=== PATIENT | male | born 1995 | race Caucasian/White ===

== ENCOUNTER 2017-02-18 18:39 | Emergency (ER) | payer SELFPAY ==
[2017-02-18] MEDS ORDERED: Sodium Chloride 0.9% 1,000 ML PRIMARY IV ONE (18:53)
[2017-02-18] MEDS ORDERED: ALBUTEROL SULFATE 2.5 MG/3 ML NEB ONE (18:53)
[2017-02-18] MEDS ORDERED: NORMAL SALINE 10 ML SYRINGE FLUSH IVP PRN (18:53)
[2017-02-18 19:17] LABS: BASOPHILS # (AUTO) 0.03 10*3/UL; BASOPHILS % (AUTO) 0.2 % (0-1); EOSINOPHILS # (AUTO) 0.18 10*3/UL; EOSINOPHILS % (AUTO) 0.9 % (0-8); HEMATOCRIT 48.3 % (42.0-52.0); HEMOGLOBIN 17.4 g/dL (14.0-18.0); LYMPHOCYTES # (AUTO) 0.56 10*3/uL; MEAN CORPUSCULAR HEMOGLOBIN 29.5 PG (27-31); MEAN PLATELET VOLUME 9.4 FL (7.4-12.2); MONOCYTES # (AUTO) 0.61 10*3/UL (0.3-0.8); MONOCYTES % (AUTO) 3.1 % (5-15); NEUTROPHILS # (AUTO) 18.09 10*3/UL; NEUTROPHILS % (AUTO) 92.6 % (50-80); RED BLOOD COUNT 5.89 10^6/uL (4.70-6.10)
[2017-02-18 19:25] LABS: BUN/CREATININE RATIO 12.66 (6-20); CALCIUM 9.1 mg/dL (8.7-10.7); SERUM ALBUMIN 4.5 g/dL (3.5-4.8)
[2017-02-18 19:33] LABS: VENOUS PH 7.5 (7.32-7.42)
[2017-02-18 19:33] LABS: PLATELET MORPHOLOGY COMMENT NORMAL MORPHOLOGY (NORM); RBC MORPHOLOGY COMMENT NORMAL MORPHOLOGY (NORM); WBC MORPHOLOGY COMMENT NORMAL MORPHOLOGY (NORM)
[2017-02-18] MEDS ORDERED: ACETAMINOPHEN 500 MG TABLET PO ONE (19:45)
[2017-02-18 19:47] VITALS: RESP 48; TEMP 97.8
[2017-02-18 20:36] LABS: ABG PCO2 29 MMHG (34-38); ABG PH 7.41 (7.35-7.45); ABG PO2 89 MMHG (65-75); COLLECTION SITE R Brachial
[2017-02-18 20:37] LABS: ABG BASE EXCESS -6 MMOL/L (-2-2); ABG OXYGEN SATURATION 97 % (90-100); ALLEN TEST yes
--- NOTE | 2017-02-18 20:53 | DI ---
HISTORY: Dyspnea, cough. COMPARISON: 09/16/2014. FINDINGS: The heart is within normal limits. The lung tadeo are essentially clear. There has been on private branch exchange service adviser the interval. IMPRESSION: 1. No acute cardiopulmonary pathology identified.
--- NOTE | 2017-02-18 21:29 | DI ---
HISTORY: Cough, dyspnea. COMPARISON: None available. TECHNIQUE: Following the administration of intravenous contrast (using the pulmonary artery angiogra m protocol) axial CT images were obtained with coronoal and sagittal reformats. FINDINGS: Patchy ground glass opacities are noted in the lungs possibly infectious or inflammatory i n nature. There is mild soft tissue prominence in the hilar regions possibly representing lymphadenopathy, also possibly infectious/inflammatory in nature, however underlying neoplasm hard to exclude. The heart is normal in size. There are no filling defects in the main, hilar, segmental, and subsegmental pulmonary arteries. The visualized portions of the tracheobronchial tree are normal. IMPRESSION: 1. No evidence of pulmonary emboli. 2. Patchy ground glass opacities are noted in the lungs possibly infectious or inflammatory in nature ; follow up is recommended. 3. There is mild soft tissue prominence in the hilar regions possibly representing lymphadenopathy, a lso possibly infectious/inflammatory in nature, however underlying neoplasm hard to exclude. Clinical correlation and follow up are recommended.
[2017-02-18] MEDS ORDERED: AZITHROMYCIN 250 MG TABLET PO ONE (21:53)
--- NOTE | 2017-02-18 22:09 | PDOC ---
Dyspnea HPI - General Chief Complaint: Dyspnea Stated Complaint: Shortness of breath Date Seen by Provider: 02/18/17 Time Seen by Provider: 18:45 Source: POSITIVE: Patient Exam Limitations: POSITIVE: No limitations Treatment Prior to Arrival: REPORTS: None Nurse's Notes Reviewed & Considered: Yes - History of Present Illness Initial Comments: The patient is a 21-year-old male. He states that for the past one and a half days he has felt short of breath and has had some pain over the left anterior thorax with breathing and direct palpation. He states he's had some myalgia, especially in his legs and back. He's also had a cough during this time, minimally productive. Patient is had surgical repair of bilateral club feet. No hemoptysis. Body Location Affected: REPORTS: Chest Timing: REPORTS: Gradual, Getting Worse Duration: >24 hours (Approximately 36 hours) Severity: Moderate Quality: REPORTS: "Pain" (Pleuritic chest pain left anterior thorax) Initiating Event: DENIES: Upper Respiratory Illness, Out of Medications, Sports , Exercise, Aspiration, Choking, Allergy, Exposure - Smoke, Exposure - Mold, Exposure - Other Allergen Context: DENIES: Sleep, Rest, Emotional Upset, Activity, Exertion, Other Exacerbated By: REPORTS: Coughing Associated Symptoms: REPORTS: Fever (Subjectively), Chest Pain, Chest Discomfort , Left Chest, Painful Breathing Similar Symptoms Previously: No Recently seen/treated/hospitalized: No Any Prior Injuries Related to Current Complaint?: No - Patient Home Medications Home Medications: Home Medications Azithromycin [Zithromax Tri-Chucho] 500 mg PO DAILY #4 tab 02/18/17 - Patient Allergies Allergies/Adverse Reactions: Allergies Allergy/AdvReac Type Severity Reaction Status Date / Time No Known Allergies Allergy Verified 02/18/17 18:41 Past Medical History - heen HEENT History: Denies History Cardiovascular History: Denies History Additional Cardiovasular History: BRADYCARDIC Respiratory History: Denies History Gastrointestinal History: Denies History Genitourinary History: Denies History Endocrine History: Denies History Musculoskeletal History: Other (please comment) Prosthesis or Implant: No Additional Musculoskeletal History: BORN W/ CLUB FEET, HAVE BEEN REPAIRED Neurological History: Denies History Blood Disorders: Denies History Psychiatric History: Denies History History of Sexually Transmitted Diseases: No Male Reproductive History: Denies History Cancer History: Denies History In Past Year Been Physically Harmed or Verbally Threatened: No History of MDRO: No History of Other Communicable Diseases: No Tobacco Use: Never Smoker Alcohol Use: None Substance Use Type: None Previous Surgical History: Yes Type / Date of Surgery: repair of bilateral club feet Anesthesia Reactions: No Malignant Hyperthermia: No Significant Family History: Diabetes Past Medical History Reviewed: Reviewed - No Changes ROS - Limitations ROS Limitations: No Limitations Constitution: REPORTS: Fever (Subjectively) Cardiovascular: REPORTS: Denies Cardiac Symptoms Respiratory: REPORTS: Cough Non Productive, Hurts To Breathe, Shortness Of Breath Neurological: REPORTS: Denies Neuro Symptoms Gastrointestinal: REPORTS: Denies GI Symptoms Endocrine: REPORTS: Denies Symptoms Musculoskeletal: REPORTS: Denies MS Symptoms Genitourinary: REPORTS: Denies Symptoms Eyes: REPORTS: Denies Symptoms ENT: REPORTS: Denies Symptoms Skin: REPORTS: Denies Skin Symptoms Lympathic: REPORTS: Denies Lympathic Symptoms Immunologic: POSITIVE: Denies Symptoms Psychiatric: POSITIVE: Denies Psych Symptoms Dyspnea Physical Exam - General Appearance General Appearance: REPORTS: Alert, Cooperative, No Acute Distress, No Evidence of Trauma - HEENT HEENT: POSITIVE: Head Inspection Nml, Eyes Inspection Nml, Ears Inspection Nml, Nose Inspection Nml, Oral/Dental Inspect. Nml, Pharynx Inspect. Nml, PERRL, EOMI - Neck Neck: REPORTS: Normal Inspection, No Carotid Bruit - Respiratory Respiratory: REPORTS: No Respiratory Distress, Speaks Full Sentences, Rhonchi, See Diagram. DENIES: Breath Sounds Normal (Mild scattered rhonchi), No Pleuritic Chest Pain, No Pain on Inspiration, Respiratory Distress, Fatigue, Wheezes, Rales - Cardiovascular Cardiovascular: REPORTS: Regular Rate and Rhythm, Heart Sounds Normal, Equal Pulses, Strong Pulses, No Murmur, No Gallop, No Friction Rub, No JVD Peripheral Pulses: Radial (R): 2+, Radial (L): 2+ - Abdomen Abdomen: Soft: (All Quadrants), Normal Bowel Sounds: (All Quadrants), Denies Tenderness: (All Quadrants), No Splenomegaly: (All Quadrants), No Hepatomegaly: (All Quadrants), No Guarding: (All Quadrants), No Rebound: (All Quadrants), No Palpable Pulse: (All Quadrants), No Palpabale Mass: (All Quadrants), No Distention: (All Quadrants), No Rigidity: (All Quadrants) - Skin Skin: REPORTS: Intact, Normal For Race, Warm, Dry, No Rash - Extremities Extremity: Non-Tender: (All Extremities), Normal ROM: (All Extremities), Normal Inspection: (All Extremities) - Neurological / Psychological Neurological: POSITIVE: Oriented X3, fisher weir Normal As Tested, Motor Normal, Sensation Normal, 5, 6 Images - Body Body: 1 - Area of chest discomfort with inspiration Dyspnea Progress - Results Reviewed by me Xrays/CTs/US Reviewed by me: Yes Discussed with Radiologist: Yes Radiology Findings: Chest x-ray normal. CT chest shows patchy groundglass opacities compatible with an infectious/inflammatory process. Lab Results Reviewed: Yes Lab Results:: Laboratory Results 02/18/17 02/18/17 02/18/17 Range/Units 18:53 19:10 19:38 WBC 19.53 H (4.8-10.8) 10^3/uL RBC 5.89 (4.70-6.10) 10^6/uL Hgb 17.4 (14.0-18.0) g/dL Hct 48.3 (42.0-52.0) % MCV 82.0 (80-90) FL MCH 29.5 (27-31) PG MCHC 36.0 (33-37) g/dL RDW Std Deviation 37.4 L (39-50) fL RDW Coeff of Annabella 12.4 (11.5-14.5) % Plt Count 266 (140-350) 10*3/uL MPV 9.4 (7.4-12.2) FL Immature Gran % (Auto) 0.3 (0-5) % Neut % (Auto) 92.6 H (50-80) % Lymph % (Auto) 2.9 L (10-50) % Gilliam % (Auto) 3.1 L (5-15) % Eos % (Auto) 0.9 (0-8) % Baso % (Auto) 0.2 (0-1) % Immature Gran # (Auto) 0.06 10*3/UL Neut # (Auto) 18.09 10*3/UL Lymph # (Auto) 0.56 10*3/uL Gilliam # (Auto) 0.61 (0.3-0.8) 10*3/UL Eos # (Auto) 0.18 10*3/UL Baso # (Auto) 0.03 10*3/UL WBC Morphology Comment Normal morphology (NORM) Plt Morphology Comment Normal morphology (NORM) RBC Morph Comment Normal morphology (NORM) D-Dimer 0.41 (0.00-0.59) mg/L ABG pH 7.41 (7.35-7.45) ABG pCO2 29 L (34-38) MMHG ABG pO2 89 H (65-75) MMHG ABG HCO3 19 L (22-26) ABG Total CO2 20 L (23-27) MMOL/L ABG O2 Saturation 97 (90-100) % ABG Base Excess -6 L (-2-2) MMOL/L Hernan Test yes VBG pH 7.50 H (7.32-7.42) VBG pCO2 22 L (45-55) mmHg VBG HCO3 17 L (22-26) mmol/L VBG Base Excess -6 L (-2-2) MMOL/L FiO2 2l Sodium 134 L (135-145) meq/L Potassium 4.2 (3.8-5.2) meq/L Chloride 100 (98-112) meq/L Carbon Dioxide 20 L (23-33) meq/L Anion Gap 14 (5-20) BUN 19 (7-22) mg/dL Creatinine 1.5 (0.70-1.50) mg/dL Estimated GFR 60 (>60 ml/min/1.73m(2)) BUN/Creatinine Ratio 12.66 (6-20) Glucose 171 H (78-110) mg/dL Calculated Osmolality 283.0 (267-292) mOsm/kg Calcium 9.1 (8.7-10.7) mg/dL Total Bilirubin 3.1 H (0.3-1.2) mg/dL AST 25 (21-57) IU/L ALT 25 (21-72) IU/L Alkaline Phosphatase 95 (38-126) IU/L C-Reactive Protein 18.0 H (0.0-0.9) mg/dL NT-Pro-B Natriuret Pep 138 H (0-125) PG/ML Total Protein 7.6 (6.1-8.0) g/dL Albumin 4.5 (3.5-4.8) g/dL Globulin 3.2 (2.50-4.10) g/dL Albumin/Globulin Ratio 1.40 (1.3-2.0) mg/g - Patient's Progress Pain Medication Addressed: POSITIVE: Not Applicable School/Work Release Addressed: POSITIVE: Yes (Rest; no work until Tuesday) Re-Examine Time: 21:40 Re-Examine Comment: The patient feels better on discharge. Patient given his first dose of Zithromax. Respiratory rate down to around 20/m. Blood gases does show some respiratory alkalosis and patient was felt to have been hyperventilating upon arrival. Status: POSITIVE: Improved, Re-Examined Air Movement: POSITIVE: Good - Consult Counseled: POSITIVE: Patient, Family (Grandfather), RE: Lab Results, RE: Radiology Results, RE: DX, RE: Need for F/U Patient Care Time - Estimated PCT Patient Care Time (In Minutes): 45 Vital Signs - Recent Vital Signs Vital Signs: Vital Signs (Last 8 hours) Temp Pulse Resp BP Pulse Ox 02/18/17 19:46 97.8 F 48 H 97 02/18/17 18:39 99.0 F 104 H 58 H 129/75 93 - VS Reviewed Vital Signs Reviewed: Yes Discharge Clinical Impression: Pneumonia Discharge Disposition: Discharged to Home Condition: Stable Prescriptions / Orders: Azithromycin [Zithromax Tri-Chucho] 500 mg PO DAILY #4 tab Patient Instructions Given at Discharge: Pneumonia (ED) Additional Instructions: The CAT scan of your chest shows that you most likely have a pneumonia. There is no evidence of blood clots in the lung. You have and given some antibiotics to be taken tonight. Get her prescription for the remainder of the antibiotics tomorrow. Increase fluids. Tylenol for fever or chest discomfort. Return here anytime if condition worsens in any way. Follow-up with your primary care provider if not completely back to normal in 5 or 6 days. Rest this weekend. Follow Up With: NONE,NONE [Primary Care Provider] - (Instructions as above. Follow-up with your primary care provider. Return here anytime if condition worsens.)
== END 2017-02-18 22:21 | disposition home or self-care (01) ==
LOC: ER 18:39
DX: J18.9 Pneumonia, unspecified organism (principal); R07.9 Chest pain, unspecified; R50.9 Fever, unspecified; R05 Cough; R06.02 Shortness of breath
CPT/HCPCS: 36415; 36600; 71020; 71275; 80053; 82803; 83880; 85025; 85379; 86140; 87040; 94640; 99283; J7030